=== PATIENT | female | born 1975 | race Caucasian/White ===

== ENCOUNTER 2016-09-14 16:26 | Emergency (ER) | payer BC ==
[~2016-09-14] VITALS: Ht 170.2 cm; Wt 76.8 kg
[2016-09-14] MEDS ORDERED: AMBIEN10 MG PO (16:35)
[2016-09-14] MEDS ORDERED: WELLBUTRIN SR150 M3 PO (16:36)
[2016-09-14] MEDS ORDERED: BIOTIN1 M1 PO (16:36)
[2016-09-14 18:00] VITALS: BP 134/86
== END 2016-09-14 18:00 | disposition home or self-care (01) ==
LOC: ED 16:26
DX: J02.9 Acute pharyngitis, unspecified (principal)